=== PATIENT | male | born 1980 | race Caucasian/White ===

== ENCOUNTER 2016-06-10 07:46 | Emergency (ER) | payer OTHER ==
[2016-06-10 07:53] VITALS: BP 126/78; PULSE 76; TEMP 97.7; BMI 31.8
--- NOTE | 2016-06-10 08:12 | PDOC ---
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 HISTORY OF PRESENT ILLNESS: The patient states he has pulled his lower back multiple times in the past. 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 He denies fall, trauma, numbness/tingling to LEs, radiation of pain, saddle anesthesia. He states he normally has to see his pain management doctor for an injection when this happens. Vital signs on arrival are within normal limits. REVIEW OF SYSTEMS: GENERAL/CONSTITUTIONAL: No fever/chills. No weakness. No weight change. HEAD, EYES, EARS, NOSE AND THROAT: No change in vision. No ear pain or discharge. No sore throat. GENITOURINARY: No dysuria, frequency, or change in urination. MUSCULOSKELETAL: No joint or muscle swelling or pain. No neck pain. +low back pain. SKIN: No rash or easy bruising. NEUROLOGIC: No headache, vertigo, loss of consciousness, or loss of sensation. PHYSICAL EXAM: GENERAL: The patient is awake, alert, and fully oriented, in no acute distress. He is ambulatory with stiff movements. He appears mildly uncomfortable. HEAD: Normal with no signs of trauma. BACK: No midline lumbar spine TTP or step offs. TTP of b/l lumbar paravertebral muscles. EXTREMITIES: Normal range of motion, no edema. 2+ LE reflexes b/l. NEUROLOGICAL: Normal speech, normal gait. CN II-XII grossly intact. No saddle anesthesia. PSYCH: Normal mood, normal affect. SKIN: Warm, dry, normal turgor, no rashes or lesions noted. Past History - Past Medical History Allergies/Adverse Reactions: Allergies Allergy/AdvReac Type Severity Reaction Status Date / Time No Known Allergies Allergy Verified 06/10/16 07:52 Home Medications: Ambulatory Orders Cyclobenzaprine HCl [Flexeril -] 10 mg PO TID #18 tablet 06/10/16 Naproxen [Naprosyn -] 500 mg PO BID #28 tablet 06/10/16 Other medical history: denies - Immunization History Immunization Up to Date: Yes - Psycho/Social/Smoking Cessation Hx Anxiety: No Suicidal Ideation: No Smoking Status: No Smoking History: Never smoked Have you smoked in the past 12 months: No Number of Cigarettes Smoked Daily: 0 Information on smoking cessation initiated: No Hx Alcohol Use: No Drug/Substance Use Hx: No Substance Use Type: None *Physical Exam - Vital Signs Last Vital Signs Temp Pulse Resp BP Pulse Ox 97.7 F 76 18 126/78 97 06/10/16 07:51 06/10/16 07:51 06/10/16 07:51 06/10/16 07:51 06/10/16 07:51 Medical Decision Making - Medical Decision Making A/P: 36 y/o male with low back pain and lumbar muscle strain. Will give IM toradol and PO flexeril in the ER. Will d/c to home with rx for naproxen and flexeril. Suggested he f/u with his pain management doctor as soon as possible , apply heat to the affected area and return to the ER with any worsening or concerning symptoms. The patient verbalizes understanding of all instructions, has no further questions and is awaiting discharge. *DC/Admit/Observation/Transfer Diagnosis at time of Disposition: Back pain Qualifiers: Back pain location: low back pain Chronicity: acute Back pain laterality: bilateral Sciatica presence: without sciatica Qualified Code(s): M54.5 - Low back pain - Discharge Dispostion Disposition: HOME Condition at time of disposition: Good - Prescriptions Prescriptions: Cyclobenzaprine HCl [Flexeril -] 10 mg PO TID #18 tablet Naproxen [Naprosyn -] 500 mg PO BID #28 tablet - Patient Instructions Printed Discharge Instructions: DI for Low Back Pain Additional Instructions: Discharge Instructions: -Take medications as prescribed -Flexeril may cause drowsiness -Follow up with your pain management doctor as soon as possible -Return to the ER with any worsening or concerning symptoms - Post Discharge Activity Work/School Note: Back to Work
[2016-06-10] MEDS ORDERED: CYCLOBENZAPRINE HCL 10 MG TABLET (FP) PO ONE (08:13)
[2016-06-10] MEDS ORDERED: KETOROLAC TROMETHAMINE 60 MG/2 ML VIAL IM ONE (08:13)
[2016-06-10] MEDS ORDERED: KETOROLAC TROMETHAMINE 60 MG/2 ML VIAL ONE (08:15)
[2016-06-10] MEDS ORDERED: CYCLOBENZAPRINE HCL 10 MG TABLET (FP) ONE (08:16)
== END 2016-06-10 08:23 | disposition home or self-care (01) ==
LOC: JERFT 07:46
PROC: 3E0233Z Introduction of Anti-inflammatory into Muscle, Percutaneous Approach (ICD-10-PCS; principal; 2016-06-10)
DX: M54.5 Low back pain (principal); X50.1XXA Overexertion from prolonged static or awkward postures, initial encounter; V68.4XXA Person boarding or alighting a heavy transport vehicle injured in noncollision transport accident, initial encounter; Y92.488 Other paved roadways as the place of occurrence of the external cause; Y93.89 Activity, other specified; Y99.0 Civilian activity done for income or pay
CPT/HCPCS: 99281-25

== ENCOUNTER 2018-04-20 21:13 | Emergency (ER) | payer BC, OTHER ==
[2018-04-20 21:22] VITALS: BP 136/90; PULSE 66; TEMP 97.3; BMI 24.4
[2018-04-20] MEDS ORDERED: METHOCARBAMOL 500 MG TABLET PO ONE (21:42)
--- NOTE | 2018-04-20 21:42 | PDOC ---
History of Present Illness <Ginger Proctor - Last Filed: 04/20/18 22:14> - General History Source: Patient Exam Limitations: No Limitations - History of Present Illness Initial Comments: 04/20/18 22:28 The patient is a 38-year-old male with no significant past medical history presents to the emergency department with lower back pain. 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 The patient reports about an hour [employer], he was called into a work, where he was pulling the hose, when the onset of lower back pain presented, accompanied with mid-back spasm. The patient reports prior similar incidents, that was improved with Toradol. The patient reports a history of 2 herniated disk in the past thats confirmed with MRIs. Denies numbness, tingling, saddle anesthesia, chest pain, shortness of breath, nausea, or vomiting. Allergies: NKA PCP: Not on staff. <Corina Gaitan - Last Filed: 04/20/18 22:29> - General Chief Complaint: Back Pain Stated Complaint: BACK PAIN Time Seen by Provider: 04/20/18 21:32 Past History - Past Medical History COPD: No - Immunization History Immunization Up to Date: Yes - Suicide/Smoking/Psychosocial Hx Smoking Status: No Smoking History: Never smoked Have you smoked in the past 12 months: No Number of Cigarettes Smoked Daily: 0 Information on smoking cessation initiated: No Hx Alcohol Use: No Drug/Substance Use Hx: No Substance Use Type: None <Ginger Proctor - Last Filed: 04/20/18 22:14> <Corina Gaitan - Last Filed: 04/20/18 22:29> - Past Medical History Allergies/Adverse Reactions: Allergies Allergy/AdvReac Type Severity Reaction Status Date / Time No Known Allergies Allergy Verified 04/20/18 21:21 Home Medications: Ambulatory Orders Cyclobenzaprine HCl [Flexeril -] 10 mg PO HS #10 tablet 01/15/18 Ibuprofen 800 mg PO TID #30 tablet 01/15/18 Cyclobenzaprine HCl [Flexeril -] 10 mg PO TID #60 tablet 04/20/18 Review of Systems - Review of Systems Comments:: 04/20/18 22:25 "GENERAL/CONSTITUTIONAL: No fever or chills. No weakness. HEAD, EYES, EARS, NOSE AND THROAT: No change in vision. No ear pain or discharge. No sore throat. GASTROINTESTINAL: No nausea, vomiting, diarrhea or constipation. GENITOURINARY: No dysuria, frequency, or change in urination. CARDIOVASCULAR: No chest pain or shortness of breath. RESPIRATORY: No cough, wheezing, or hemoptysis. MUSCULOSKELETAL: +Mid-back muscle spasm. No joint or muscle swelling or pain. No neck pain. SKIN: No rash NEUROLOGIC: No headache, vertigo, loss of consciousness, or change in strength/ sensation. ENDOCRINE: No increased thirst. No abnormal weight change. HEMATOLOGIC/LYMPHATIC: No anemia, easy bleeding, or history of blood clots. ALLERGIC/IMMUNOLOGIC: No hives or skin allergy." <Corina Gaitan - Last Filed: 04/20/18 22:29> *Physical Exam - Vital Signs Last Vital Signs Temp Pulse Resp BP Pulse Ox 97.3 F L 66 18 136/90 99 04/20/18 21:21 04/20/18 21:21 04/20/18 21:21 04/20/18 21:21 04/20/18 21:21 <Ginger Proctor - Last Filed: 04/20/18 22:14> - Vital Signs Last Vital Signs Temp Pulse Resp BP Pulse Ox 97.3 F L 66 18 136/90 99 04/20/18 21:21 04/20/18 21:21 04/20/18 21:21 04/20/18 21:21 04/20/18 21:21 - Physical Exam Comments: 04/20/18 22:25 GENERAL: Awake, alert, and fully oriented, in no acute distress HEAD: No signs of trauma EYES: PERRLA, EOMI, sclera anicteric, conjunctiva clear ENT: Auricles normal inspection, hearing grossly normal, nares patent, oropharynx clear without exudates. Moist mucosa NECK: Normal ROM, supple, no lymphadenopathy, JVD, or masses LUNGS: Breath sounds equal, clear to auscultation bilaterally. No wheezes, and no crackles HEART: Regular rate and rhythm, normal S1 and S2, no murmurs, rubs or gallops ABDOMEN: Soft, nontender, normoactive bowel sounds. No guarding, no rebound. No masses EXTREMITIES: Normal range of motion, no edema. No clubbing or cyanosis. No cords , erythema, or tenderness BACK: +R. Paraspinal lower thoracic lower lumbar area muscle spasm that resolved after medication. No midline tenderness. NEUROLOGICAL: Normal speech, normal gait, normal reflexes and tone SKIN: Warm, Dry, normal turgor, no rashes or lesions noted. <Corina Gaitan - Last Filed: 04/20/18 22:29> ED Treatment Course - Medications Given in the ED: ED Medications Discontinued Medications Generic Name Dose Route Start Last Admin Trade Name Jomar PRN Reason Stop Dose Admin Ketorolac Tromethamine 60 mg 04/20/18 21:43 04/20/18 21:49 Toradol Injection - IM 04/20/18 21:44 60 mg ONCE ONE Administration Methocarbamol 500 mg 04/20/18 21:42 04/20/18 21:49 Robaxin - PO 04/20/18 21:43 500 mg ONCE ONE Administration Oxycodone/Acetaminophen 2 combo 04/20/18 21:42 04/20/18 21:49 Percocet 5/325 - PO 04/20/18 21:43 Not Given ONCE ONE <Corina Gaitan - Last Filed: 04/20/18 22:29> Medical Decision Making - Medical Decision Making 04/20/18 21:45 Pt is refusing XRAY beacuse he states that this happens to him and he knows what is happening.. Pt is also refusing percocet. <Ginger Proctor - Last Filed: 04/20/18 22:14> *DC/Admit/Observation/Transfer - Discharge Dispostion Decision to Admit order: No <Ginger Proctor - Last Filed: 04/20/18 22:14> - Attestations Scribe Attestion: 04/20/18 22:25 Documentation prepared by Corina Gaitan, acting as medical i d sales for Ginger Proctor MD. <Corina Gaitan - Last Filed: 04/20/18 22:29> Diagnosis at time of Disposition: Low back pain, Back spasm - Discharge Dispostion Disposition: HOME Condition at time of disposition: Stable - Prescriptions Prescriptions: Cyclobenzaprine HCl [Flexeril -] 10 mg PO TID #60 tablet - Post Discharge Activity Forms/Work/School Notes: Back to Work
[2018-04-20] MEDS ORDERED: KETOROLAC TROMETHAMINE 60 MG/2 ML VIAL IM ONE (21:43)
[2018-04-20] MEDS ORDERED: KETOROLAC TROMETHAMINE 60 MG/2 ML VIAL ONE (21:46)
[2018-04-20] MEDS ORDERED: METHOCARBAMOL 500 MG TABLET ONE (21:46)
== END 2018-04-20 22:22 | disposition home or self-care (01) ==
LOC: JER 21:13
PROC: 3E0233Z Introduction of Anti-inflammatory into Muscle, Percutaneous Approach (ICD-10-PCS; principal; 2018-04-20)
DX: S39.012A Strain of muscle, fascia and tendon of lower back, initial encounter (principal); M62.830 Muscle spasm of back; X50.0XXA Overexertion from strenuous movement or load, initial encounter; Y93.89 Activity, other specified; Y92.89 Other specified places as the place of occurrence of the external cause; Y99.0 Civilian activity done for income or pay
CPT/HCPCS: 99283-25

== ENCOUNTER 2018-06-30 13:50 | Emergency (ER) | payer OTHER ==
[2018-06-30 14:01] VITALS: BP 140/89; PULSE 83; TEMP 98.2; BMI 33.2
--- NOTE | 2018-06-30 14:42 | PDOC ---
History of Present Illness - General Chief Complaint: Allergic Reaction Stated Complaint: ALLERGIC REACTION Time Seen by Provider: 06/30/18 14:41 History Source: Patient Exam Limitations: No Limitations - History of Present Illness Initial Comments: 06/30/18 16:28 This patient is a 38 year old male, with no significant PMHx, who presents s/p pruritic rash to head/neck. Patient states that on (06/27/18), he received a CT w/ contrast as an outpatient for evaluation of a headache. He states that on Sunday morning, he woke up with redness/and itching on his anterior neck and face. He states that he took Benadryl which helped to relieve the itching. He states that this morning the redness and pruritic bumps came back. Took 25 mg benadryl which helped to relieve the itching. Denies any difficult swallong, change in voice, sob, abd pain, n/v. Denies using any new lotions. Denies wearing any new necklaces or jewelry. Denies any bleeding, voice changes, shortness of breath. PCP: Simba Ramírez Security Ambassador: [facility] Social Hx: Works for [employer] Past History - Past Medical History Allergies/Adverse Reactions: Allergies Allergy/AdvReac Type Severity Reaction Status Date / Time No Known Allergies Allergy Verified 04/20/18 21:21 Home Medications: Ambulatory Orders Cyclobenzaprine HCl [Flexeril -] 10 mg PO HS #10 tablet 01/15/18 Ibuprofen 800 mg PO TID #30 tablet 01/15/18 Cyclobenzaprine HCl [Flexeril -] 10 mg PO TID #60 tablet 04/20/18 Hydrocortisone 0.5% Cream [Hytone 0.5% Cream -] 1 applic TP BID #1 tube COPD: No DVT: No Dementia: No - Immunization History Immunization Up to Date: Yes - Suicide/Smoking/Psychosocial Hx Smoking Status: No Smoking History: Never smoked Have you smoked in the past 12 months: No Number of Cigarettes Smoked Daily: 0 Information on smoking cessation initiated: No Hx Alcohol Use: No Drug/Substance Use Hx: No Substance Use Type: None Review of Systems - Review of Systems Able to Perform ROS?: Yes Comments:: 06/30/18 16:28 CONSTITUTIONAL: No reported: Fever, Chills, Diaphoresis, Generalized Weakness, Malaise, Loss of Appetite HEENT: No reported: Rhinorrhea, Nasal Congestion, Throat Pain, Throat Swelling, Difficulty Swallowing, Mouth Swelling, Ear Pain, Eye Pain, Visual Changes CARDIOVASCULAR: No reported: Chest Pain, Syncope, Palpitations, Irregular Heart Rate, Lightheadedness, Peripheral Edema RESPIRATORY: No reported: Cough, Shortness of Breath, SOB with Exertion, Orthopnea, Wheezing , Stridor, Hemoptysis GASTROINTESTINAL: No reported: Abdominal pain, Abdominal Distension, Nausea, Vomiting, Diarrhea, Constipation, Melena, Hematochezia GENITOURINARY: No reported: Dysuria, Frequency, Urgency, Hesitancy, Flank Pain, Genital Pain MUSCULOSKELETAL: No reported: Myalgia, Arthralgia, Joint Swelling, Back pain, Neck Pain SKIN: Reported: Pruritic rash on head/neck No reported: Pallor HEMEATOLOGIC/IMMUNOLOGIC: No reported: Easy Bleeding, Easy Bruising, Lymphadenopathy, Frequent infections ENDOCRINE: No reported: Unexplained Weight Gain, Unexplained Weight Loss, Heat Intolerance , Cold Intolerance NEUROLOGIC: No reported: Headache, Focal Weakness, Paresthesias, Vertigo, Lightheadedness, Unsteady Gait, Seizure, Mental Status Changes, Incontinence PSYCHIATRIC: No reported: Anxiety, Depression *Physical Exam - Vital Signs Last Vital Signs Temp Pulse Resp BP Pulse Ox 98.2 F 83 18 140/89 97 06/30/18 14:00 06/30/18 14:00 06/30/18 14:00 06/30/18 14:00 06/30/18 14:00 - Physical Exam Comments: 06/30/18 14:59 GENERAL: The patient is awake, alert, and fully oriented, Nontoxic - in no acute distress. HEAD: Normocephalic, atraumatic. EYES: extraocular movements intact, sclera anicteric, conjunctiva clear. ENT: Normal voice, Moist mucous membranes. no rash noted on oral membranes. posterior pharynx patent NECK: Normal range of motion, supple, discrete blanching erythemadous macules with a central papule (size of 1mm/pinhead) - non indurated, non tender, non fluctuan, diffuse on anterior neck extending posteriorly and to the lower face/ cheek. LUNGS: Breath sounds equal, clear to auscultation bilaterally. No wheezes, no rhonchi, no rales. HEART: Regular rate and rhythm, normal S1 and S2 without murmur, rub or gallop. ABDOMEN: Soft, nontender, normoactive bowel sounds. No guarding, no rebound. . No CVA tenderness EXTREMITIES: Normal range of motion, no edema. No clubbing or cyanosis. No cords, erythema, or tenderness. NEUROLOGICAL: No facial assymetry, Normal speech, PSYCH: Normal mood, normal affect. SKIN: Warm, Dry, normal turgor, no rashes appreciated on chest/thorax, arms Moderate Sedation - Procedure Monitoring Vital Signs: Procedure Monitoring Vital Signs Temperature 98.2 F 06/30/18 14:00 Pulse Rate 83 06/30/18 14:00 Respiratory Rate 18 06/30/18 14:00 Blood Pressure 140/89 06/30/18 14:00 O2 Sat by Pulse Oximetry (%) 97 06/30/18 14:00 Medical Decision Making - Medical Decision Making 06/30/18 15:02 unclear cause of rash not systemic - locatedprimarily on the neck ?related to lotion use? no signs of cellulitis/induration/abscess/folliculitis will give hydrocoritsone cream to neck (no face usage), benadryl for itching will pt fu with derm if not better in 2-3 days 06/30/18 15:05 A portion of this note was documented by scribe services under my direction. I have reviewed the details of the note, within reason, and agree with the documentation with the following case summary and management plan written by me *DC/Admit/Observation/Transfer Diagnosis at time of Disposition: Rash and nonspecific skin eruption - Discharge Dispostion Disposition: HOME Condition at time of disposition: Stable Decision to Admit order: No - Prescriptions Prescriptions: Hydrocortisone 0.5% Cream [Hytone 0.5% Cream -] 1 applic TP BID #1 tube - Referrals Referrals: Simba Ramírez MD [Primary Care Provider] - Radha Benton MD [Staff Physician] - - Patient Instructions Additional Instructions: Return to the emergency department immediately with ANY new, persistent or worsening symptoms. Use Benadryl for itching. He may use a hydrocortisone cream twice daily for 3 days to your neck, do not use it on your face. You MUST call and follow up with your optical effects camera operator within 4-5 days for further evaluation of your symptoms if not resolved. Results were discussed with you. Please make sure your doctor reviews the results of your emergency evaluation. Print Language: [place]ORE[place] - Post Discharge Activity
== END 2018-06-30 15:08 | disposition home or self-care (01) ==
LOC: JER 13:50
DX: R21 Rash and other nonspecific skin eruption (principal)
CPT/HCPCS: 99281-25

== ENCOUNTER 2019-01-14 08:44 | Emergency (ER) | payer OTHER | END 2019-01-14 09:24 | disposition home or self-care (01) | LOC: JERFT 08:44 ==

== ENCOUNTER 2020-06-09 19:47 | Emergency (ER) | payer OTHER ==
[2020-06-09 19:51] VITALS: BP 135/90; PULSE 82; TEMP 98.8; BMI 33.2
[2020-06-09] MEDS ORDERED: SILVER SULFADIAZINE 1% TOP CREAM 50 GM JAR TP ONE ×2 (20:20→20:40)
== END 2020-06-09 20:52 | disposition home or self-care (01) ==
LOC: JER 19:47
DX: T20.16XA Burn of first degree of forehead and cheek, initial encounter (principal); T20.112A Burn of first degree of left ear [any part, except ear drum], initial encounter
CPT/HCPCS: 99283-25

== ENCOUNTER 2021-06-22 08:50 | Emergency (ER) | payer OTHER ==
[2021-06-22 08:54] VITALS: BP 135/85; PULSE 80; TEMP 97.4; BMI 33.2
[2021-06-22] MEDS ORDERED: LIDOCAINE 5% TOPICAL PATCH TP ONE (09:41)
[2021-06-22] MEDS ORDERED: KETOROLAC TROMETHAMINE 60 MG/2 ML VIAL IM ONE (09:41)
[2021-06-22] MEDS ORDERED: CYCLOBENZAPRINE HCL 10 MG TABLET (FP) PO ONE (09:42)
[2021-06-22] MEDS ORDERED: CYCLOBENZAPRINE HCL 10 MG TABLET (FP) ONE (09:49)
[2021-06-22] MEDS ORDERED: LIDOCAINE 5% TOPICAL PATCH ONE (09:49)
[2021-06-22] MEDS ORDERED: KETOROLAC TROMETHAMINE 30 MG/1 ML VIAL ONE (09:50)
[2021-06-22] MEDS ORDERED: LIDOCAINE PATCH REMOVAL MC SCH (22:00)
== END 2021-06-22 10:00 | disposition home or self-care (01) ==
LOC: JERFT 08:50
PROC: 3E0233Z Introduction of Anti-inflammatory into Muscle, Percutaneous Approach (ICD-10-PCS; principal; 2021-06-22)
DX: M54.50 Low back pain, unspecified (principal)
CPT/HCPCS: 99283-25

== ENCOUNTER 2022-07-11 09:25 | Emergency (ER) | payer OTHER ==
[2022-07-11 10:18] VITALS: BP 128/84; PULSE 67; RESP 20; TEMP 98.1; BMI 32.5
[2022-07-11] MEDS ORDERED: LIDOCAINE 5% TOPICAL PATCH TP ONE (10:58)
[2022-07-11] MEDS ORDERED: KETOROLAC TROMETHAMINE 30 MG/1 ML VIAL IM ONE (10:58)
[2022-07-11] MEDS ORDERED: METHOCARBAMOL 500 MG TABLET PO ONE (10:58)
[2022-07-11] MEDS ORDERED: LIDOCAINE 5% TOPICAL PATCH ONE (11:14)
[2022-07-11] MEDS ORDERED: KETOROLAC TROMETHAMINE 30 MG/1 ML VIAL ONE (11:14)
[2022-07-11] MEDS ORDERED: METHOCARBAMOL 500 MG TABLET ONE (11:14)
[2022-07-11] MEDS ORDERED: LIDOCAINE PATCH REMOVAL MC SCH (22:00)
== END 2022-07-11 11:21 | disposition home or self-care (01) ==
LOC: JERFT 09:25
PROC: 3E023GC Introduction of Other Therapeutic Substance into Muscle, Percutaneous Approach (ICD-10-PCS; principal; 2022-07-11)
DX: M54.50 Low back pain, unspecified (principal)
CPT/HCPCS: 99284-25

== ENCOUNTER 2024-03-29 14:58 | Emergency (ER) | payer OTHER ==
[2024-03-29 15:17] VITALS: BP 134/86; PULSE 84; RESP 20; TEMP 98.6; BMI 32.5
[2024-03-29] MEDS ORDERED: IBUPROFEN 600 MG TABLET (FP) PO ONE (15:38)
[2024-03-29] MEDS: IBUPROFEN 600 MG TABLET (FP) PO ONE (15:41)
== END 2024-03-29 16:17 | disposition home or self-care (01) ==
LOC: JERFT 14:58
DX: S89.91XA Unspecified injury of right lower leg, initial encounter (principal); Y35.811A Legal intervention involving manhandling, law enforcement official injured, initial encounter
CPT/HCPCS: 73560-TC-RT-FY; 99283-25

== ENCOUNTER 2024-06-21 18:37 | Emergency (ER) | payer OTHER ==
[2024-06-21 18:51] VITALS: BP 134/89; PULSE 78; RESP 20; TEMP 98.4; BMI 32.5
[2024-06-21] MEDS ORDERED: IBUPROFEN 400 MG TABLET (FP) PO ONE (19:19)
[2024-06-21] MEDS ORDERED: ACETAMINOPHEN 500 MG TABLET (FP) ONE (19:19)
[2024-06-21] MEDS: IBUPROFEN 400 MG TABLET (FP) PO ONE (19:22)
[2024-06-21] MEDS: ACETAMINOPHEN 500 MG TABLET (FP) PO ONE (19:22)
== END 2024-06-21 19:40 | disposition home or self-care (01) ==
LOC: JER 18:37 → JERFT 18:37
DX: M54.50 Low back pain, unspecified (principal); X50.0XXA Overexertion from strenuous movement or load, initial encounter; Y99.0 Civilian activity done for income or pay
CPT/HCPCS: 99283-25